=== PATIENT | female | born 1975 | race Caucasian/White ===

== ENCOUNTER → 2017-12-03 12:18 | Outpatient (CLI) | payer OTHER, SELFPAY ==
--- NOTE | 2017-12-03 12:28 | RAD_ITS ---
STUDY: X-RAY - LUMBAR SPINE REASON FOR EXAM: Female, 42 years old. Left hip pain x6 months, no known injury. TECHNIQUE: 5 view(s) of the lumbar spine were obtained. COMPARISON: None FINDINGS: Normal lumbar lordosis. There is no substantial scoliosis. There is a normal alignment of the vertebrae. Normal vertebral bodies and endplates. Normal disc space heights. Mild retrolisthesis L5 on S1. Mild sclerosis of the right sacroiliac joint. The soft tissue structures are unremarkable. RAD/L/S Spine Min 4 Views IMPRESSION: Mild retrolisthesis L5 on S1. Mild degeneration right sacroiliac joint. Electronically Signed: Juju Booth MD at 7:57 EDT , Service support ,
== END ==
DX: M54.10 Radiculopathy, site unspecified (principal); M25.552 Pain in left hip
CPT/HCPCS: 72110

== ENCOUNTER → 2019-04-07 07:49 | Outpatient (CLI) | payer OTHER, SELFPAY ==
--- NOTE | 2019-04-07 07:55 | BI_ITS ---
MAMMOGRAPHY - BILATERAL SCREENING REASON FOR EXAM: Female, 43 years old. Routine annual screening examination. PERTINENT HISTORY: Grandmother with breast cancer. TECHNIQUE: Digital bilateral breast leroy (3D mammographic acquisition) in the CC and MLO projections. 2-D mediolateral oblique (MLO) and craniocaudad (CC) views of both breasts were obtained. CAD: Full Field Digital Mammography with Computer Added Detection was performed. COMPARISON: None. Baseline examination. FINDINGS: Breast Composition: The breasts are extremely dense, which lowers the sensitivity of mammography. There are no dominant masses or suspicious calcifications. No other significant abnormalities are identified. BI/SCREEN MAMM (CAD) W/LEROY BILAT IMPRESSION: Negative screening mammogram. Yearly followup mammogram recommended. (A) ASSESSMENT CATEGORY: BIRADS Category 1: Negative. A letter regarding these results will be sent to the patient by the facility within 30 days. Approximately 10% of breast cancers are not detected by mammography. A normal mammogram should not delay biopsy of a clinically suspicious abnormality. [id number] Electronically Signed: Kristian Gibson, at 11:33 EDT , Service support ,
--- NOTE | 2019-04-07 07:55 | US_ITS ---
STUDY: ULTRASOUND TRANSVAGINAL CLINICAL: Female, 43 years old. History of right ovarian cyst TECHNIQUE: Transvaginal COMPARISON: None. FINDINGS: Normal uterine size measuring 9.2 x 5.4 x 4.7 cm. There are no myometrial masses. Normal endometrial thickness measuring 3 mm. There are no endometrial masses, and there is no fluid in the endometrial cavity. The endometrium is hyperechoic. Normal uterine cervix. Normal right ovary, measuring 3.7 x 2.3 x 2.1 cm. Normal left ovary, measuring 3.5 x 2.2 x 2.2 cm. There is no free fluid in the pelvis. Polycystic ovary disease: No. US/Pelvic (Non ) IMPRESSION: Study within normal limits. Electronically Signed: Robbie Mckinley MD at 21:02 EDT , Service support ,
--- NOTE | 2019-04-07 08:12 | US_ITS ---
STUDY: ULTRASOUND TRANSVAGINAL CLINICAL: Female, 43 years old. History of right ovarian cyst TECHNIQUE: Transvaginal COMPARISON: None. FINDINGS: Normal uterine size measuring 9.2 x 5.4 x 4.7 cm. There are no myometrial masses. Normal endometrial thickness measuring 3 mm. There are no endometrial masses, and there is no fluid in the endometrial cavity. The endometrium is hyperechoic. Normal uterine cervix. Normal right ovary, measuring 3.7 x 2.3 x 2.1 cm. Normal left ovary, measuring 3.5 x 2.2 x 2.2 cm. There is no free fluid in the pelvis. Polycystic ovary disease: No. US/Transvaginal Non- IMPRESSION: Study within normal limits. Electronically Signed: Robbie Mckinley MD at 21:02 EDT , Service support ,
== END ==
PROVIDERS: Family Provider Family Medicine; PCP Family Medicine; Referring Provider Family Medicine; Visit Provider Family Medicine
DX: N83.201 Unspecified ovarian cyst, right side (principal); Z12.31 Encounter for screening mammogram for malignant neoplasm of breast
CPT/HCPCS: 76830; 76856; 77063; 77067; 93976

== ENCOUNTER → 2020-08-23 10:18 | Outpatient (CLI) | payer OTHER, SELFPAY ==
[2020-08-23 13:05] LABS: Thyroid Stim Hormone (TSH) 0.24 uIU/mL (0.358-3.74)
== END ==
PROVIDERS: PCP Family Medicine; Visit Provider Family Medicine
DX: E03.9 Hypothyroidism, unspecified (principal)
CPT/HCPCS: 36415; 84443

== ENCOUNTER → 2021-03-14 09:59 | Outpatient (CLI) | payer OTHER, SELFPAY ==
[2021-03-14 13:14] LABS: Follicle Stimulating Hormone 6.9 mIU/mL; T4 Free Direct 1.18 ng/dL (0.76-1.46); Thyroid Stim Hormone (TSH) 0.62 uIU/mL (0.358-3.74)
== END ==
PROVIDERS: PCP Family Medicine; Referring Provider Family Medicine; Visit Provider Family Medicine
DX: N95.1 Menopausal and female climacteric states (principal); E03.9 Hypothyroidism, unspecified
CPT/HCPCS: 36415; 83001; 84439; 84443

== ENCOUNTER → 2022-04-01 | Outpatient (CLI) | payer OTHER, SELFPAY ==
--- NOTE | 2022-04-01 13:06 | EKG12_ITS ---
Test Reason : PREOP Blood Pressure : / mmHG Vent. Rate : 076 BPM Atrial Rate : 076 BPM P-R Int : 124 ms QRS Dur : 072 ms QT Int : 370 ms P-R-T Axes : 063 073 066 degrees QTc Int : 416 ms Normal sinus rhythm Normal ECG Confirmed by BOWEN HARE, BUTCH ([id number]), news videotape editor DANYELL HENDRICKS ([id number]) on 04/02/2022 10:13:56 AM Referred By: LAMAR SHANKS Confirmed By:BUTCH WISEMAN MD
== END | disposition home or self-care (01) ==
LOC: PSN 13:04
PROVIDERS: PCP Family Medicine
DX: Z01.810 Encounter for preprocedural cardiovascular examination (principal); Z01.812 Encounter for preprocedural laboratory examination
CPT/HCPCS: 93005